=== PATIENT | male | born 1980 | race Caucasian/White ===

== ENCOUNTER 2018-05-02 23:25 | Emergency (ER) | payer OTHER ==
--- NOTE | 2018-05-02 23:29 | EDM.PDOC ---
ED HPI GENERAL MEDICAL PROBLEM - General Chief Complaint: Flank Pain Stated Complaint: UNK Time Seen by Provider: 05/02/18 23:30 Source of Information: Reports: Patient History Limitations: Reports: No Limitations - History of Present Illness INITIAL COMMENTS - FREE TEXT/NARRATIVE: HISTORY AND PHYSICAL: History of present illness: [37-year-old male presenting in emergency department with chief complaint of 2- 3 hours of right flank pain. Patient states that 2-3 hours ago he began having right flank pain that radiated into his groin. Scriber that is sharp and intermittent. He did have associated nausea with 2 episodes of vomiting. States that the pain did go away when he came to the emergency department. Does have a history of stones says that his last was when he was 20 years of age. His originally from [place] and is headed back home tomorrow. On exam patient has some mild right CVA tenderness. Urinalysis was negative for infection but positive for blood. CT showed bilateral nephrolithiasis without Hydronephrosis. There was no obstruction noted. No other significant findings other than cholelithiasis. review of systems: As per history of present illness and below otherwise all systems reviewed and negative. Past medical history: As per history of present illness and as reviewed below otherwise noncontributory. Surgical history: As per history of present illness and as reviewed below otherwise noncontributory. Social history: No reported history of drug or alcohol abuse. Family history: As per history of present illness and as reviewed below otherwise noncontributory. Physical exam: HEENT: Atraumatic, normocephalic, pupils reactive, negative for conjunctival pallor or scleral icterus, mucous membranes moist, throat clear, neck supple, nontender, trachea midline. Lungs: Clear to auscultation, breath sounds equal bilaterally, chest nontender. Heart: S1S2, regular, negative for clicks, rubs, or JVD. Abdomen: Soft, nondistended, nontender. Negative for masses or hepatosplenomegaly. Negative for costovertebral tenderness. Pelvis: Stable nontender. Genitourinary: Deferred. Rectal: Deferred. Extremities: Atraumatic, negative for cords or calf pain. Neurovascular unremarkable. Neuro: Awake, alert, oriented. Cranial nerves II through XII unremarkable. Cerebellum unremarkable. Motor and sensory unremarkable throughout. Exam nonfocal. Diagnostics: CBC, CMP, UA/UC CT abdomen and pelvis Therapeutics: 1 L normal saline Impression: Nephrolithiasis without obstruction Plan: Urinalysis was negative for urinary tract infection but positive for blood. Patient most likely did pass a stone as he suspected. CBC showed no signs of infections and CMP was overly unremarkable. As above see results of CT which showed bilateral nephrolithiasis without obstruction or hydronephrosis. Patient is visiting from [place] and states that he will follow-up when he returns home tomorrow. Instructed to return to emergency department if he has any new or worsening symptoms or starts to have any kind of fever. He is understanding and was discharged in good condition. Definitive disposition and diagnosis as appropriate pending reevaluation and review of above. - Related Data Allergies Allergy/AdvReac Type Severity Reaction Status Date / Time No Known Allergies Allergy Verified 05/02/18 23:29 Home Meds: Home Meds . [No Known Home Meds] 05/02/18 [History] ED ROS GENERAL - Review of Systems Review Of Systems: ROS reveals no pertinent complaints other than HPI. ED EXAM, GENERAL - Physical Exam Exam: See Below Course - Vital Signs Last Recorded V/S: Last Vital Signs Temp 96.4 F 05/02/18 23:30 Pulse 83 05/02/18 23:30 Resp 18 05/02/18 23:30 BP 142/90 H 05/02/18 23:30 Pulse Ox - Orders/Labs/Meds Orders: Active Orders 24 hr Category Date Time Status Abdomen Pelvis wo Cont [CT] Stat Exams 05/02/18 23:47 Taken CULTURE URINE [RM] Stat Lab 05/02/18 23:25 Received URINALYSIS W/MICROSCOPIC [UA W/MICROSCOPIC] [URIN] Stat Lab 05/02/18 23:25 Ordered Sodium Chloride 0.9% [Saline Flush] Med 05/02/18 23:42 Active 10 ml FLUSH ASDIRECTED PRN Sodium Chloride 0.9% [Saline Flush] Med 05/02/18 23:42 Active 10 ml FLUSH ASDIRECTED PRN Sodium Chloride 0.9% [Saline Flush] Med 05/02/18 23:42 Active 2.5 ml FLUSH ASDIRECTED PRN Saline Lock Insert [OM.PC] Stat Oth 05/02/18 23:42 Ordered Medication Orders Sodium Chloride (Saline Flush) 10 ml FLUSH ASDIRECTED PRN PRN Reason: Keep Vein Open Sodium Chloride (Saline Flush) 10 ml FLUSH ASDIRECTED PRN PRN Reason: Keep Vein Open Sodium Chloride (Saline Flush) 2.5 ml FLUSH ASDIRECTED PRN PRN Reason: Keep Vein Open Labs: Laboratory Tests 05/02/18 05/02/18 05/02/18 Range/Units 23:25 23:50 23:50 WBC 13.18 H (4.0-11.0) K/uL RBC 5.46 (4.50-5.90) M/uL Hgb 16.2 (13.0-17.0) g/dL Hct 47.2 (38.0-50.0) % MCV 86.4 (80.0-98.0) fL MCH 29.7 (27.0-32.0) pg MCHC 34.3 (31.0-37.0) g/dL RDW Std Deviation 43.4 (28.0-62.0) fl RDW Coeff of Belkis 14 (11.0-15.0) % Plt Count 163 (150-400) K/uL MPV 10.60 (7.40-12.00) fL Neut % (Auto) 87.9 H (48.0-80.0) % Lymph % (Auto) 6.1 L (16.0-40.0) % [place] % (Auto) 5.7 (0.0-15.0) % Eos % (Auto) 0.1 (0.0-7.0) % Baso % (Auto) 0.2 (0.0-1.5) % Neut # (Auto) 11.6 H (1.4-5.7) K/uL Lymph # (Auto) 0.8 (0.6-2.4) K/uL [place] # (Auto) 0.8 (0.0-0.8) K/uL Eos # (Auto) 0.0 (0.0-0.7) K/uL Baso # (Auto) 0.0 (0.0-0.1) K/uL Nucleated RBC % 0.0 /100WBC Nucleated RBCs # 0 K/uL Sodium 138 (136-148) mmol/L Potassium 3.9 (3.5-5.1) mmol/L Chloride 105 (98-107) mmol/L Carbon Dioxide 27.5 (21.0-32.0) mmol/L BUN 19 H (7.0-18.0) mg/dL Creatinine 1.3 (0.8-1.3) mg/dL Est Cr Clr Drug Dosing 83.74 mL/min Estimated GFR (MDRD) > 60.0 ml/min Glucose 127 H (74-106) mg/dL Calcium 9.3 (8.5-10.1) mg/dL Total Bilirubin 0.5 (0.2-1.0) mg/dL AST 17 (15-37) IU/L ALT 32 (14-63) IU/L Alkaline Phosphatase 62 (46-116) U/L Total Protein 7.0 (6.4-8.2) g/dL Albumin 4.0 (3.4-5.0) g/dL Globulin 3.0 (2.0-3.5) g/dL Albumin/Globulin Ratio 1.3 (1.3-2.8) Lipase 155 (73-393) U/L Urine Color YELLOW Urine Appearance CLEAR Urine pH 6.0 (5.0-8.0) Ur Specific [place] 1.015 (1.001-1.035) Urine Protein NEGATIVE (NEGATIVE) mg/dL Urine Glucose (UA) NEGATIVE (NEGATIVE) mg/dL Urine Ketones NEGATIVE (NEGATIVE) mg/dL Urine Occult Blood LARGE H (NEGATIVE) Urine Nitrite NEGATIVE (NEGATIVE) Urine Bilirubin NEGATIVE (NEGATIVE) Urine Urobilinogen 0.2 (<2.0) EU/dL Ur Leukocyte Esterase NEGATIVE (NEGATIVE) Urine RBC 1-3 (0-2/HPF) Urine WBC 0-1 (0-5/HPF) Ur Epithelial Cells RARE (NONE-FEW) Urine Bacteria RARE (NEGATIVE) Urine Mucus LIGHT (NONE-MOD) Meds: Medications Generic Name Dose Route Start Last Admin Trade Name Freq PRN Reason Stop Dose Admin Sodium Chloride 10 ml 05/02/18 23:42 Saline Flush FLUSH ASDIRECTED PRN Keep Vein Open Sodium Chloride 10 ml 05/02/18 23:42 Saline Flush FLUSH ASDIRECTED PRN Keep Vein Open Sodium Chloride 2.5 ml 05/02/18 23:42 Saline Flush FLUSH ASDIRECTED PRN Keep Vein Open Discontinued Medications Generic Name Dose Route Start Last Admin Trade Name Freq PRN Reason Stop Dose Admin Sodium Chloride 1,000 mls @ 999 mls/hr 05/02/18 23:42 05/03/18 00:04 Normal Saline IV 05/03/18 00:42 999 mls/hr .Bolus ONE Administration Ondansetron HCl 4 mg 05/02/18 23:42 05/03/18 00:42 Zofran IVPUSH 05/02/18 23:43 Not Given ONETIME ONE Departure - Departure Time of Disposition: 01:26 Disposition: Home, Self-Care 01 Condition: Good Clinical Impression: Bilateral nephrolithiasis - Discharge Information Forms: ED Department Discharge Additional Instructions: My general discharge The following information is given to patients seen in the emergency department who are being discharged to home. This information is to outline your options for follow-up care. We provide all patients seen in our emergency department with a follow-up referral. The need for follow-up, as well as the timing and circumstances, are variable depending upon the specifics of your emergency department visit. If you don't have a primary care physician on staff, we will provide you with a referral. We always advise you to contact your personal physician following an emergency department visit to inform them of the circumstance of the visit and for follow-up with them and/or the need for any referrals to a consulting specialist. The emergency department will also refer you to a specialist when appropriate. This referral assures that you have the opportunity for follow-up care with a specialist. All of these measure are taken in an effort to provide you with optimal care, which includes your follow-up. Under all circumstances we always encourage you to contact your private physician who remains a resource for coordinating your care. When calling for follow-up care, please make the office aware that this follow-up is from your recent emergency room visit. If for any reason you are refused follow-up, please contact the [facility] Emergency Department at and asked to speak to the emergency department charge nurse. Follow-up with primary care provider and urologist at home like we discussed. Return department if any new or worsening symptoms. - My Orders Last 24 Hours: My Active Orders 05/02/18 23:25 CULTURE URINE [RM] Stat URINALYSIS W/MICROSCOPIC [UA W/MICROSCOPIC] [URIN] Stat 05/02/18 23:42 Sodium Chloride 0.9% [Saline Flush] 10 ml FLUSH ASDIRECTED PRN Sodium Chloride 0.9% [Saline Flush] 10 ml FLUSH ASDIRECTED PRN Sodium Chloride 0.9% [Saline Flush] 2.5 ml FLUSH ASDIRECTED PRN Saline Lock Insert [OM.PC] Stat 05/02/18 23:47 Abdomen Pelvis wo Cont [CT] Stat - Assessment/Plan Last 24 Hours: My Active Orders 05/02/18 23:25 CULTURE URINE [RM] Stat URINALYSIS W/MICROSCOPIC [UA W/MICROSCOPIC] [URIN] Stat 05/02/18 23:42 Sodium Chloride 0.9% [Saline Flush] 10 ml FLUSH ASDIRECTED PRN Sodium Chloride 0.9% [Saline Flush] 10 ml FLUSH ASDIRECTED PRN Sodium Chloride 0.9% [Saline Flush] 2.5 ml FLUSH ASDIRECTED PRN Saline Lock Insert [OM.PC] Stat 05/02/18 23:47 Abdomen Pelvis wo Cont [CT] Stat
[2018-05-02] MEDS ORDERED: Sodium Chloride 0.9% 10 ML Syringe FLUSH PRN ×2 (23:42)
[2018-05-02] MEDS ORDERED: Sodium Chloride 0.9% 2.5 ML Syringe FLUSH PRN (23:42)
[2018-05-02] MEDS ORDERED: Ondansetron 4 MG/2 ML SDV IVPUSH ONE (23:42)
[2018-05-02] MEDS ORDERED: Sodium Chloride 0.9% 1,000 ML IV ONE (23:42)
[2018-05-03 00:17] LABS: CHLORIDE,CL 105 mmol/L (98-107); SODIUM,NA 138 mmol/L (136-148)
--- NOTE | 2018-05-03 11:22 | CT ---
EXAM DATE: 05/02/18 PATIENT'S AGE: 37 Patient: PRETTY DAVID Facility: [place], [place] Site . Site : 1980 Study: CT Abdomen/Pelvis [id number]/5/2018 12:24:00 AM Ordering Physician: dori briones Final Report: INDICATION: Abdominal pain. TECHNIQUE: CT abdomen and pelvis without contrast. COMPARISON: None. FINDINGS: Resource Technician CT images: Nonobstructive bowel gas pattern. Lower chest: Unremarkable. Liver: Unremarkable. Low density focus in the left hepatic lobe on series 201, image 23, likely small liver cyst. Spleen: Unremarkable. Pancreas: Unremarkable. Gallbladder and bile ducts: All calcified gallstones. No acute inflammatory changes involving gallbladder. No abnormal biliary dilatation. Adrenal glands: Unremarkable. Kidneys: Bilateral renal calculi. Mild asymmetric fullness of right renal collecting system. No obstructing right or left ureteral calculi. GI tract: Unremarkable. Appendix not clearly identified. Vascular structures: Unremarkable. Lymph nodes: Unremarkable. Miscellaneous: Unremarkable. No free air or significant free fluid. Small fat containing umbilical hernia defect. Pelvic Organs: Unremarkable. Bones: Unremarkable for age. IMPRESSION: 1. Bilateral nephrolithiasis. 2. Mild asymmetric fullness to right renal collecting system, of uncertain etiology. No obstructing right or left ureteral calculi. No bladder calculi identified. Mild asymmetrical renal collecting system fullness may be due to recent passage of right ureteral calculus. 3. Appendix not clearly identified. 4. Tiny fat containing umbilical hernia defect. 5. Cholelithiasis. Dictated by He Mensah MD @ 05/03/2018 1:08:16 AM Please note that all CT scans at this facility use dose modulation, iterative reconstruction, and/or weight-based dosing when appropriate to reduce radiation dose to as low as reasonably achievable. Dictated by: He Mensah MD @ 05/03/2018 01:08:24 (Electronic Signature) Report Signed by Proxy. [facility]
== END 2018-05-03 01:36 | disposition home or self-care (01) ==
LOC: MW.ED 23:25
DX: N20.0 Calculus of kidney (principal)
CPT/HCPCS: 36415; 74176; 80053; 81001; 83690; 85025; 87086; 96360; 99284; J7040

== ENCOUNTER 2019-08-19 10:17 | Emergency (ER) | payer OTHER ==
[2019-08-19] MEDS ORDERED: Ondansetron 4 MG/2 ML SDV IVPUSH ONE (10:22)
[2019-08-19] MEDS ORDERED: Ketorolac 30 MG/ML SDV IVPUSH ONE (10:22)
[2019-08-19] MEDS ORDERED: Sodium Chloride 0.9% 1,000 ML IV ONE (10:22)
--- NOTE | 2019-08-19 10:24 | EDM.PDOC ---
ED HPI GENERAL MEDICAL PROBLEM - General Stated Complaint: VOMITTING AND LT SIDE PAIN Time Seen by Provider: 08/19/19 10:18 Source of Information: Reports: Patient History Limitations: Reports: No Limitations - History of Present Illness INITIAL COMMENTS - FREE TEXT/NARRATIVE: HISTORY AND PHYSICAL: History of present illness: Patient is a 38-year-old male who presents to the emergency room today with complaints of left upper quadrant and left flank pain which started approximately one hour prior to arrival. He states he woke up about 9 AM this morning and noticed sharp pain to the left flank associated with nausea and vomiting. He states he does have a history of kidney stones and does feel that this is similar. Prior to this morning he had felt well and had no complaints or concerns. Patient denies any fever, chills, headache, change in vision, syncope or near syncope. Denies any chest pain, back pain, shortness of breath or cough. Denies any diarrhea, constipation or dysuria. Has not noted any blood in urine or stool. Denies any testicular pain, swelling or erythema. Patient has been eating and drinking appropriately. Review of systems: As per history of present illness and below otherwise all systems reviewed and negative. Past medical history: As per history of present illness and as reviewed below otherwise noncontributory. Surgical history: As per history of present illness and as reviewed below otherwise noncontributory. Social history: See social history for further information Family history: As per history of present illness and as reviewed below otherwise noncontributory. Physical exam: General: Well-developed and well nourished 38-year-old male. Alert and oriented. Nontoxic appearing and in no acute distress. HEENT: Atraumatic, normocephalic, pupils equal and reactive bilaterally, negative for conjunctival pallor or scleral icterus, mucous membranes moist, trachea midline. No drooling or trismus noted. No meningeal signs. No hot potato voice noted. Lungs: Clear to auscultation, breath sounds equal bilaterally, chest nontender. Heart: S1S2, regular rate and rhythm without overt murmur Abdomen: Soft, nondistended, obese, left upper quadrant tenderness. Negative for masses. Left sided costovertebral tenderness. Pelvis: Stable nontender. Skin: Intact, warm, dry. No lesions or rashes noted. Extremities: Atraumatic, moves all extremities per self without difficulty or deficits, negative for cords or calf pain. Neurovascular unremarkable. Neuro: Awake, alert, oriented. Cranial nerves II through XII unremarkable. Cerebellum unremarkable. Motor and sensory unremarkable throughout. Exam nonfocal. Notes: Patient is requesting something for his heartburn, states this is normal for him and is not concerned about that today. States he usually takes over-the- counter Tums or Mylanta but did not take that this morning as he presented to the emergency room for his abdominal pain. CT shows a mildly prominent left ureter caused by a 3 mm obstructing stone within the distal left ureter. Nonobstructing renal colic calculi are seen within both kidneys. Gallstones are an incidental finding. Dr Niño is currently out of the office. I spoke with Dr Matthews at [facility] in [place], he is agreeable that this patient can follow up as outpatient. All findings were shared with patient. Supportive care measures were reviewed and discussed. Voices understanding and is agreeable to plan of care. Denies any further questions or concerns at this time. Diagnostics: CBC, CMP, UA, lipase, CT abdomen and pelvis Therapeutics: IV fluid, Zofran, Toradol, GI cocktail Prescription: [place] (#20) Flomax Zofran Impression: Kidney stone, left Plan: 1. Please take the medications as directed. Increase your oral fluids. Strain your urine until the stone has passed. 2. Tylenol and/or ibuprofen as needed for pain management. [place] for moderate to severe pain. This medication may cause drowsiness a do not take it will driving her needing to be functioning outside of the house. 3. Follow-up with Dr. Niño, he is currently on vacation but should be returning soon. Dr. Matthews, urologist in [place], is also wearing N agreeable to see you if needed. 4. Return to the ED as needed and as discussed. Definitive disposition and diagnosis as appropriate pending reevaluation and review of above. Onset: Today Left Flank Pain Score (Numeric/FACES): 10 - Related Data Allergies Allergy/AdvReac Type Severity Reaction Status Date / Time No Known Allergies Allergy Verified 08/19/19 10:32 Home Meds: Home Meds . [No Known Home Meds] 05/02/18 [History] Past Medical History - Past Health History Medical/Surgical History: Denies Medical/Surgical History HEENT History: Reports: None Cardiovascular History: Reports: None Respiratory History: Reports: None Gastrointestinal History: Reports: None Genitourinary History: Reports: None Neurological History: Reports: None Psychiatric History: Reports: None Endocrine/Metabolic History: Reports: None Dermatologic History: Reports: None Social & Family History - Family History Family Medical History: Noncontributory ED ROS GENERAL - Review of Systems Review Of Systems: ROS reveals no pertinent complaints other than HPI. ED EXAM, GI/ABD - Physical Exam Exam: See Below (See dictation) Course - Vital Signs Last Recorded V/S: Last Vital Signs Temp 96.3 F 08/19/19 10:34 Pulse 62 08/19/19 13:10 Resp 18 08/19/19 13:10 BP 144/84 H 08/19/19 13:10 Pulse Ox 96 08/19/19 13:10 - Orders/Labs/Meds Labs: Laboratory Tests 08/19/19 08/19/19 08/19/19 Range/Units 10:54 10:54 12:20 WBC 8.14 (4.0-11.0) K/uL RBC 5.83 (4.50-5.90) M/uL Hgb 17.0 (13.0-17.0) g/dL Hct 50.8 H (38.0-50.0) % MCV 87.1 (80.0-98.0) fL MCH 29.2 (27.0-32.0) pg MCHC 33.5 (31.0-37.0) g/dL RDW Std Deviation 43.8 (28.0-62.0) fl RDW Coeff of Belkis 14 (11.0-15.0) % Plt Count 176 (150-400) K/uL MPV 11.50 (7.40-12.00) fL Neut % (Auto) 70.7 (48.0-80.0) % Lymph % (Auto) 20.5 (16.0-40.0) % [place] % (Auto) 6.9 (0.0-15.0) % Eos % (Auto) 1.7 (0.0-7.0) % Baso % (Auto) 0.2 (0.0-1.5) % Neut # (Auto) 5.8 H (1.4-5.7) K/uL Lymph # (Auto) 1.7 (0.6-2.4) K/uL [place] # (Auto) 0.6 (0.0-0.8) K/uL Eos # (Auto) 0.1 (0.0-0.7) K/uL Baso # (Auto) 0.0 (0.0-0.1) K/uL Nucleated RBC % 0.0 /100WBC Nucleated RBCs # 0 K/uL Sodium 140 (136-148) mmol/L Potassium 3.8 (3.5-5.1) mmol/L Chloride 104 (98-107) mmol/L Carbon Dioxide 24.9 (21.0-32.0) mmol/L BUN 13 (7.0-18.0) mg/dL Creatinine 1.3 (0.8-1.3) mg/dL Est Cr Clr Drug Dosing 82.91 mL/min Estimated GFR (MDRD) > 60.0 ml/min Glucose 117 H (74-106) mg/dL Calcium 9.1 (8.5-10.1) mg/dL Total Bilirubin 0.6 (0.2-1.0) mg/dL AST 20 (15-37) IU/L ALT 38 (14-63) IU/L Alkaline Phosphatase 81 (46-116) U/L Total Protein 7.4 (6.4-8.2) g/dL Albumin 3.9 (3.4-5.0) g/dL Globulin 3.5 (2.6-4.0) g/dL Albumin/Globulin Ratio 1.1 (0.9-1.6) Lipase 94 (73-393) U/L Urine Color YELLOW Urine Appearance CLEAR Urine pH 7.0 (5.0-8.0) Ur Specific [place] 1.025 (1.001-1.035) Urine Protein NEGATIVE (NEGATIVE) mg/dL Urine Glucose (UA) NEGATIVE (NEGATIVE) mg/dL Urine Ketones NEGATIVE (NEGATIVE) mg/dL Urine Occult Blood NEGATIVE (NEGATIVE) Urine Nitrite NEGATIVE (NEGATIVE) Urine Bilirubin NEGATIVE (NEGATIVE) Urine Urobilinogen 0.2 (<2.0) EU/dL Ur Leukocyte Esterase NEGATIVE (NEGATIVE) Meds: Medications Discontinued Medications Generic Name Dose Route Start Last Admin Trade Name Freq PRN Reason Stop Dose Admin Al Hydroxide/Mg Hydroxide 15 0 ml 08/19/19 10:30 08/19/19 10:46 ml/ Metoclopramide HCl 5 mg/ PO 08/19/19 10:31 5 each Lidocaine HCl 5 ml ONETIME ONE Administration Sodium Chloride 1,000 mls @ 999 mls/hr 08/19/19 10:22 08/19/19 10:46 Normal Saline IV 08/19/19 11:22 999 mls/hr STAT ONE Administration Ketorolac Tromethamine 30 mg 08/19/19 10:22 08/19/19 10:46 Toradol IVPUSH 08/19/19 10:23 30 mg ONETIME ONE Administration Morphine Sulfate 4 mg 08/19/19 11:20 08/19/19 11:25 Morphine IVPUSH 08/19/19 11:21 4 mg ONETIME ONE Administration Ondansetron HCl 4 mg 08/19/19 10:22 08/19/19 10:46 Zofran IVPUSH 08/19/19 10:23 4 mg ONETIME ONE Administration Departure - Departure Time of Disposition: 12:58 Disposition: Home, Self-Care 01 Clinical Impression: Kidney stone on left side - Discharge Information Instructions: Kidney Stones, [id number] Referrals: PCP,None [Primary Care Provider] - Forms: ED Department Discharge Additional Instructions: The following information is given to patients seen in the emergency department who are being discharged to home. This information is to outline your options for follow-up care. We provide all patients seen in our emergency department with a follow-up referral. The need for follow-up, as well as the timing and circumstances, are variable depending upon the specifics of your emergency department visit. If you don't have a primary care physician on staff, we will provide you with a referral. We always advise you to contact your personal physician following an emergency department visit to inform them of the circumstance of the visit and for follow-up with them and/or the need for any referrals to a consulting specialist. The emergency department will also refer you to a specialist when appropriate. This referral assures that you have the opportunity for follow-up care with a specialist. All of these measure are taken in an effort to provide you with optimal care, which includes your follow-up. Under all circumstances we always encourage you to contact your private physician who remains a resource for coordinating your care. When calling for follow-up care, please make the office aware that this follow-up is from your recent emergency room visit. If for any reason you are refused follow-up, please contact the [facility] Emergency Department at and asked to speak to the emergency department charge nurse. [facility] [address] [place] [address] [facility] [address] [place] [id number] [facility] - [facility] Professional Building [address] [place] [address], [address] [place] [address] 1. Please take the medications as directed. Increase your oral fluids. Strain your urine until the stone has passed. 2. Tylenol and/or ibuprofen as needed for pain management. [place] for moderate to severe pain. This medication may cause drowsiness a do not take it will driving her needing to be functioning outside of the house. 3. Follow-up with Dr. Niño, he is currently on vacation but should be returning soon. Dr. Matthews, urologist in [place], is also wearing N agreeable to see you if needed. 4. Return to the ED as needed and as discussed.
[2019-08-19] MEDS ORDERED: Alum Hydrox/Mag Hydrox/Simeth 15 ML, Metoclopramide 5 MG, Lidocaine 2% 5 ML PO ONE ×3 (10:30)
[2019-08-19] MEDS ORDERED: Morphine 4 MG/ML Syringe IVPUSH ONE (11:20)
[2019-08-19 11:39] LABS: BLOOD UREA NITROGEN,BUN 13 mg/dL (7.0-18.0); CARBON DIOXIDE,CO2 24.9 mmol/L (21.0-32.0); CHLORIDE,CL 104 mmol/L (98-107); GLUCOSE RANDOM 117 mg/dL (74-106); LIPASE 94 U/L (73-393); POTASSIUM,K 3.8 mmol/L (3.5-5.1); SODIUM,NA 140 mmol/L (136-148)
--- NOTE | 2019-08-19 12:15 | CT ---
CT abdomen and pelvis Technique: Multiple axial sections were obtained from above the dome of the diaphragm inferiorly through the pubic symphysis. Intravenous and oral contrast was not utilized. Study has been performed as a ureteral stone protocol. Comparison: Previous CT abdomen and pelvis exam Findings: Left ureter is mildly prominent. This finding is caused by a distal left ureteral stone measuring about 3 mm in size. This stone occurs approximately 2 cm to 2.5 cm from the UVJ. No other abnormal calcifications are seen along the course of the ureters. Nonobstructing stone is noted within the upper right kidney. Additional nonobstructing stone is seen within the mid left kidney. Largest nonobstructing stone measures 6 mm. Visualized lung bases show nothing acute. Dome of the left lobe of the liver shows a low-density lesion measuring 1.2 cm in size which is compatible with a cyst. No additional abnormality seen within the liver. Spleen appears within normal limits. At least three gallstones are seen within the gallbladder. Pancreas is within normal limits. Adrenal glands show no nodule. Aorta shows no aneurysm. No retroperitoneal adenopathy or mesenteric abnormalities are seen. Small fat-containing umbilical hernia is noted. No free fluid or inflammatory change is seen. No pelvic mass is identified. Appendix not definitely visualized. Bone window settings were reviewed which shows disc space narrowing at L4-L5 with vacuum phenomena. Impression: 1. Mildly prominent left ureter caused by a 3 mm obstructing stone within the distal left ureter. 2. Nonobstructing calculus seen within both kidneys. 3. Gallstones and other findings believed to be incidental as described above. Diagnostic code #3 MTDD
== END 2019-08-19 13:10 | disposition home or self-care (01) ==
LOC: MW.ED 10:17
DX: N20.2 Calculus of kidney with calculus of ureter (principal); K80.80 Other cholelithiasis without obstruction
CPT/HCPCS: 36415; 74176; 80053; 81003; 83690; 85025; 96361; 96374; 96375; 99284; A9270; J1885; J2270; J2405; J7040

== ENCOUNTER 2019-08-24 14:20 | Emergency (ER) | payer OTHER ==
[2019-08-24] MEDS ORDERED: Sodium Chloride 0.9% 1,000 ML IV ONE (14:53)
[2019-08-24] MEDS ORDERED: Ketorolac 30 MG/ML SDV IVPUSH ONE (14:53)
--- NOTE | 2019-08-24 15:10 | EDM.PDOC ---
ED HPI GENERAL MEDICAL PROBLEM - General Chief Complaint: Flank Pain Stated Complaint: PAIN LEFT SIDE Time Seen by Provider: 08/24/19 14:39 - History of Present Illness INITIAL COMMENTS - FREE TEXT/NARRATIVE: HISTORY AND PHYSICAL: History of present illness: Patient's 38-year-old white male recently seen in the ER and diagnosed with urolithiasis with left-sided renal colic and was reported a 3 mm stone who returns now with slight recurrence of the discomfort no nausea no vomiting no fever chills or other complaints. Review of systems: As per history of present illness and below otherwise all systems reviewed and negative. Past medical history: As per history of present illness and as reviewed below otherwise noncontributory. Surgical history: As per history of present illness and as reviewed below otherwise noncontributory. Social history: No reported history of drug or alcohol abuse. Family history: As per history of present illness and as reviewed below otherwise noncontributory. Physical exam: HEENT: Atraumatic, normocephalic, pupils reactive, negative for conjunctival pallor or scleral icterus, mucous membranes moist, throat clear, neck supple, nontender, trachea midline. Lungs: Clear to auscultation, breath sounds equal bilaterally, chest nontender. Heart: S1S2, regular, negative for clicks, rubs, or JVD. Abdomen: Soft, nondistended, nontender. Negative for masses or hepatosplenomegaly. Left-sided costovertebral tenderness. Pelvis: Stable nontender. Genitourinary: Deferred. Rectal: Deferred. Extremities: Atraumatic, negative for cords or calf pain. Neurovascular unremarkable. Neuro: Awake, alert, oriented. Cranial nerves II through XII unremarkable. Cerebellum unremarkable. Motor and sensory unremarkable throughout. Exam nonfocal. Diagnostics: CBC CMP UA Therapeutics: Saline 1 L bolus Toradol 30 mg IV Impression: #1 renal colic Definitive disposition and diagnosis as appropriate pending reevaluation and review of above. left flank Pain Score (Numeric/FACES): 8 - Related Data Allergies Allergy/AdvReac Type Severity Reaction Status Date / Time No Known Allergies Allergy Verified 08/24/19 14:35 Home Meds: Home Meds Tamsulosin [Tamsulosin 24 Hr] 0.4 mg PO DAILY 08/24/19 [History] Past Medical History - Past Health History Medical/Surgical History: Denies Medical/Surgical History HEENT History: Reports: None Cardiovascular History: Reports: None Respiratory History: Reports: None Gastrointestinal History: Reports: None Genitourinary History: Reports: Renal Calculus Neurological History: Reports: None Psychiatric History: Reports: None Endocrine/Metabolic History: Reports: None Dermatologic History: Reports: None - Infectious Disease History Infectious Disease History: Reports: None Social & Family History - Family History Family Medical History: Noncontributory - Tobacco Use Smoking Status *Q: Light Tobacco Smoker Years of Tobacco use: 20 Packs/Tins Daily: 0.1 - Caffeine Use Caffeine Use: Reports: Coffee - Recreational Drug Use Recreational Drug Use: No ED ROS GENERAL - Review of Systems Review Of Systems: ROS reveals no pertinent complaints other than HPI. ED EXAM, GENERAL - Physical Exam Exam: See Below (See dictation) Course - Vital Signs Text/Narrative:: Case was discussed with Dr. Niño will see the patient on Monday I did review the labs patient is agreeable he'll be discharged on hydrocodone and Zofran he is to continue Flomax as prescribed and return as needed as discussed Last Recorded V/S: Last Vital Signs Temp 36.7 C 08/24/19 14:30 Pulse 91 08/24/19 14:30 Resp 18 08/24/19 14:30 BP Pulse Ox 94 L 08/24/19 14:30 - Orders/Labs/Meds Labs: Laboratory Tests 08/24/19 08/24/19 08/24/19 Range/Units 15:15 15:15 15:53 WBC 8.31 (4.0-11.0) K/uL RBC 5.62 (4.50-5.90) M/uL Hgb 16.4 (13.0-17.0) g/dL Hct 47.9 (38.0-50.0) % MCV 85.2 (80.0-98.0) fL MCH 29.2 (27.0-32.0) pg MCHC 34.2 (31.0-37.0) g/dL RDW Std Deviation 41.1 (28.0-62.0) fl RDW Coeff of Belkis 13 (11.0-15.0) % Plt Count 193 (150-400) K/uL MPV 11.20 (7.40-12.00) fL Neut % (Auto) 76.1 (48.0-80.0) % Lymph % (Auto) 14.2 L (16.0-40.0) % Christian % (Auto) 8.2 (0.0-15.0) % Eos % (Auto) 1.3 (0.0-7.0) % Baso % (Auto) 0.2 (0.0-1.5) % Neut # (Auto) 6.3 H (1.4-5.7) K/uL Lymph # (Auto) 1.2 (0.6-2.4) K/uL Christian # (Auto) 0.7 (0.0-0.8) K/uL Eos # (Auto) 0.1 (0.0-0.7) K/uL Baso # (Auto) 0.0 (0.0-0.1) K/uL Nucleated RBC % 0.0 /100WBC Nucleated RBCs # 0 K/uL Sodium 139 (136-148) mmol/L Potassium 3.6 (3.5-5.1) mmol/L Chloride 102 (98-107) mmol/L Carbon Dioxide 23.3 (21.0-32.0) mmol/L BUN 16 (7.0-18.0) mg/dL Creatinine 2.0 H (0.8-1.3) mg/dL Est Cr Clr Drug Dosing 53.89 mL/min Estimated GFR (MDRD) 37.2 ml/min Glucose 129 H (74-106) mg/dL Calcium 9.0 (8.5-10.1) mg/dL Total Bilirubin 0.4 (0.2-1.0) mg/dL AST 20 (15-37) IU/L ALT 33 (14-63) IU/L Alkaline Phosphatase 81 (46-116) U/L Total Protein 7.5 (6.4-8.2) g/dL Albumin 3.8 (3.4-5.0) g/dL Globulin 3.7 (2.6-4.0) g/dL Albumin/Globulin Ratio 1.0 (0.9-1.6) Urine Color DARK YELLOW Urine Appearance SLT CLOUDY Urine pH 6.0 (5.0-8.0) Ur Specific [place] 1.025 (1.001-1.035) Urine Protein 30 H (NEGATIVE) mg/dL Urine Glucose (UA) NEGATIVE (NEGATIVE) mg/dL Urine Ketones TRACE H (NEGATIVE) mg/dL Urine Occult Blood NEGATIVE (NEGATIVE) Urine Nitrite NEGATIVE (NEGATIVE) Urine Bilirubin SMALL H (NEGATIVE) Urine Ictotest NEGATIVE Urine Urobilinogen 0.2 (<2.0) EU/dL Ur Leukocyte Esterase NEGATIVE (NEGATIVE) Urine RBC 0-3 (0-2/HPF) Urine WBC 0-2 (0-5/HPF) Ur Epithelial Cells RARE (NONE-FEW) Amorphous Sediment LIGHT (NEGATIVE) Urine Bacteria FEW (NEGATIVE) Meds: Medications Discontinued Medications Generic Name Dose Route Start Last Admin Trade Name Freq PRN Reason Stop Dose Admin Sodium Chloride 1,000 mls @ 999 mls/hr 08/24/19 14:53 08/24/19 15:20 Normal Saline IV 08/24/19 15:53 999 mls/hr STAT ONE Administration Ketorolac Tromethamine 30 mg 08/24/19 14:53 08/24/19 15:21 Toradol IVPUSH 08/24/19 14:54 30 mg ONETIME ONE Administration Departure - Departure Time of Disposition: 15:05 Disposition: Home, Self-Care 01 Clinical Impression: Ureteric colic - Discharge Information Referrals: PCP,None [Primary Care Provider] - Forms: ED Department Discharge Additional Instructions: The following information is given to patients seen in the emergency department who are being discharged to home. This information is to outline your options for follow-up care. We provide all patients seen in our emergency department with a follow-up referral. The need for follow-up, as well as the timing and circumstances, are variable depending upon the specifics of your emergency department visit. If you don't have a primary care physician on staff, we will provide you with a referral. We always advise you to contact your personal physician following an emergency department visit to inform them of the circumstance of the visit and for follow-up with them and/or the need for any referrals to a consulting specialist. The emergency department will also refer you to a specialist when appropriate. This referral assures that you have the opportunity for followup care with a specialist. All of these measure are taken in an effort to provide you with optimal care, which includes your followup. Under all circumstances we always encourage you to contact your private physician who remains a resource for coordinating your care. When calling for followup care, please make the office aware that this follow-up is from your recent emergency room visit. If for any reason you are refused follow-up, please contact the [facility] emergency department at and asked to speak to the emergency department charge nurse. YANELI [facility] Urology [address] [place] [id number] Hydrocodone Zofran Flomax as prescribed follow-up urology above push fluids return as needed as discussed follow-up Monday with urology above call Monday to schedule appointment
[2019-08-24 16:05] LABS: CARBON DIOXIDE,CO2 23.3 mmol/L (21.0-32.0); POTASSIUM,K 3.6 mmol/L (3.5-5.1)
== END 2019-08-24 17:16 | disposition home or self-care (01) ==
LOC: MW.ED 14:20
DX: N23 Unspecified renal colic (principal); F17.210 Nicotine dependence, cigarettes, uncomplicated
CPT/HCPCS: 36415; 80053; 81001; 85025; 96361; 96374; 99284; J1885; J7040